=== PATIENT | male | born 1965 | race Caucasian/White ===

== ENCOUNTER 2018-04-06 20:51 | Emergency (ER) | payer SELFPAY ==
[2018-04-06 20:52] VITALS: BP 122/79; PULSE 117; RESP 15; TEMP 37.3; O2SAT 97; BMI 23.8
[2018-04-06] MEDS: Glucagon 1 MG/ML Syringe 2 MG IM (21:20)
[2018-04-06] MEDS: 0.9% Normal Saline 1,000 ML 150 ML IV (21:24)
[2018-04-06] MEDS: Propofol 200 MG/20 ML Vial 300 MG IV BOLUS (21:30)
--- NOTE | 2018-04-06 21:58 | PCM.CONS.GEN ---
Problem List (1) Esophageal obstruction due to food impaction Status: Acute Reason for Consult Date of Consultation: 04/06/18 History of Present Illness: The patient is a 52 year old M who reports that yesterday evening he was eating steak and he feels that this got stuck. He reports that he has been able to swallow his saliva but feels the food is still stuck in his midesophagus. He has had food impaction in the past that has required EGD for removal. Past Medical History Allergies No Known Allergies Allergy (Verified 04/06/18 20:51) Home Medications: Ambulatory Orders Medication Instructions Recorded Allopurinol 300 mg PO DAILY 02/27/17 Lisinopril/Hydrochlorothiazide 1 each PO DAILY 02/27/17 [Zestoretic 20-25 mg Tablet] Methadone HCl [(None)] 10 mg PO Q12H 02/27/17 Omeprazole [Prilosec] 40 mg PO DAILY 02/27/17 Acetaminophen with Codeine 1 - 2 tab PO Q4H PRN PRN 05/17/17 [Acetaminophen-Cod #3 Tablet] proMETHazine tablet [Phenergan] 25 mg PO Q6H PRN PRN 05/17/17 Surgical History: noncontributory Psychiatric History: No pertinent psych hx Smoking Status: Current every day smoker - *Family History Maternal History Items: Unknown Review of Systems Constitutional: Denies: Anorexia, Chills Cardiovascular: Denies: Chest Pain Respiratory: Denies: Cough, Shortness of Breath Gastrointestinal: Reports: - - Unable to swallow liquids. Feels like food is impacted in the midesophagus., - - Patient does have dysphagia Genitourinary: Denies: Dysuria Skin: Denies: Dryness, Jaundice Psychiatric: Denies: Anxiety Hematologic/ Lymphatic: Denies: Adenopathy - Physical Exam General: Alert, Oriented x3, Cooperative HEENT: Atraumatic Neck: Supple Lungs: Normal air movement Cardiovascular: Regular rate, Regular Rhythm Abdomen: Soft, Non Tender, Non-Distended Vital Signs Temp Pulse Resp BP Pulse Ox 99.1 F 117 H 15 122/79 H 97 04/06/18 20:52 04/06/18 20:52 04/06/18 20:52 04/06/18 20:52 04/06/18 20:52 Oxygen Delivery Method Room Air Weight: 147 lb 11.355 oz Body Mass Index (BMI) 23.8 Assessment/Plan All Active Problems Esophageal obstruction due to food impaction (Acute) 52-year-old male with food impaction of the esophagus 1. The patient has had to have an EGD in the past due to this. He reports he feels the same and he feels like the food is stuck in his esophagus. 2. I explained EGD with impaction removal to the patient. I explained the risks including but not limited to bleeding, infection, perforation of the esophagus, aspiration of fluid particulates. The patient wishes to proceed with EGD. Daniel Hitchcock MD Pager: [facility] [address] [place] [address], [address] [place] [address] Office:
--- NOTE | 2018-04-06 22:01 | CON.PCM_ITS ---
Problem List (1) Esophageal obstruction due to food impaction Status: Acute Reason for Consult Date of Consultation: 04/06/18 History of Present Illness: The patient is a 52 year old M who reports that yesterday evening he was eating steak and he feels that this got stuck. He reports that he has been able to swallow his saliva but feels the food is still stuck in his midesophagus. He has had food impaction in the past that has required EGD for removal. Past Medical History Allergies No Known Allergies Allergy (Verified 04/06/18 20:51) Home Medications: Ambulatory Orders Medication Instructions Recorded Allopurinol 300 mg PO DAILY 02/27/17 Lisinopril/Hydrochlorothiazide 1 each PO DAILY 02/27/17 [Zestoretic 20-25 mg Tablet] Methadone HCl [(None)] 10 mg PO Q12H 02/27/17 Omeprazole [Prilosec] 40 mg PO DAILY 02/27/17 Acetaminophen with Codeine 1 - 2 tab PO Q4H PRN PRN 05/17/17 [Acetaminophen-Cod #3 Tablet] proMETHazine tablet [Phenergan] 25 mg PO Q6H PRN PRN 05/17/17 Surgical History: noncontributory Psychiatric History: No pertinent psych hx Smoking Status: Current every day smoker - *Family History Maternal History Items: Unknown Review of Systems Constitutional: Denies: Anorexia, Chills Cardiovascular: Denies: Chest Pain Respiratory: Denies: Cough, Shortness of Breath Gastrointestinal: Reports: - - Unable to swallow liquids. Feels like food is impacted in the midesophagus., - - Patient does have dysphagia Genitourinary: Denies: Dysuria Skin: Denies: Dryness, Jaundice Psychiatric: Denies: Anxiety Hematologic/ Lymphatic: Denies: Adenopathy - Physical Exam General: Alert, Oriented x3, Cooperative HEENT: Atraumatic Neck: Supple Lungs: Normal air movement Cardiovascular: Regular rate, Regular Rhythm Abdomen: Soft, Non Tender, Non-Distended Vital Signs Temp Pulse Resp BP Pulse Ox 99.1 F 117 H 15 122/79 H 97 04/06/18 20:52 04/06/18 20:52 04/06/18 20:52 04/06/18 20:52 04/06/18 20:52 Oxygen Delivery Method Room Air Weight: 147 lb 11.355 oz Body Mass Index (BMI) 23.8 Assessment/Plan All Active Problems Esophageal obstruction due to food impaction (Acute) 52-year-old male with food impaction of the esophagus 1. The patient has had to have an EGD in the past due to this. He reports he feels the same and he feels like the food is stuck in his esophagus. 2. I explained EGD with impaction removal to the patient. I explained the risks including but not limited to bleeding, infection, perforation of the esophagus, aspiration of fluid particulates. The patient wishes to proceed with EGD. Daniel Hitchcock MD Pager: [facility] [address] [place] [address], [address] [place] [address] Office:
[2018-04-06 22:51] VITALS: BP 96/80; BP 97/54; PULSE 119; O2SAT 93
--- NOTE | 2018-04-06 22:52 | ED.VISSUMM ---
- ER Visit Summary Date of Service: 04/06/18 Chief Complaint: [Esophageal impaction] History of Present Illness: The patient is a 52 M [presents the emergency department with complaint of feeling like there is steak stuck in his throat. Patient states that he was eating steak last night. Patient feels like steak got stuck in his throat and was having a hard time swallowing even water. Patient has had similar episodes in the past. Patient had to have EGD 1 year ago to remove steak from his throat. Patient has a history of esophageal cancer and is undergoing chemotherapy and radiation.] Physical Examination: [HEENT-PERRLA, EOMI. Cranial nerves II through XII grossly intact. TMs clear. Mucous membranes moist. No adenopathy. Cardiovascular-regular rate and rhythm without murmur or ectopy Lungs-clear to auscultation, chest wall stable without crepitus or subcu emphysema Abdomen-normoactive bowel sounds, soft, nontender, no rebound or rigidity, no peritoneal signs. Extremities-intact ?4, normal range of motion, normal pulses, atraumatic] Test Results: [None indicated] Emergency Department Course and Treatment: [Patient case was discussed with Dr. Daniel Hitchcock to who was on-call for general surgery. Patient was seen in the emergency department and EGD was performed with removal of multiple large pieces of steak from the patient's esophagus. Sedation was performed with propofol by myself and a total of 380 mg of propofol was needed. Patient tolerated procedure well.] Treatment Plan: [Patient advised to chew his food thoroughly into small pieces.] Disposition: [Discharged to home in stable condition] Impression: [Esophageal impaction-resolved EGD performed by Dr. Hitchcock] This note was generated with [employer] dictation software. It may contain incorrect words, spelling, and punctuation that were not noted in review of the chart prior to signing ED Disposition - Plan for ED Patient: Chief Complaint: Foreign Body Referrals: Hill Zee MD [Primary Care Provider] -
[2018-04-06 22:56] VITALS: BP 92/62; BP 97/54; PULSE 112; O2SAT 92
--- NOTE | 2018-04-06 22:56 | ED.DEP ---
ED Disposition - Plan for ED Patient: Chief Complaint: Foreign Body Instructions: ED Foreign Body Esophageal Rslv Referrals: Hill Zee MD [Primary Care Provider] - Daniel Hitchcock MD [STAFF PHYSICIAN] - As Needed
[2018-04-06 23:01] VITALS: BP 103/48; BP 97/54; PULSE 108; O2SAT 93
--- NOTE | 2018-04-06 23:04 | PCM.OPRPT ---
Problem List (1) Esophageal obstruction due to food impaction Status: Acute Report of Operation Date of Procedure: 04/06/18 Pre-Operative Diagnosis: Impacted food bolus in the esophagus Post-Operative Diagnosis: Same Surgery/Procedure Performed:: EGD with removal of food impaction Description of Procedure: The patient was consented and placed in the left lateral decubitus position in the emergency room. IV propofol was administered by the ER physician. Next the well-lubricated scope was placed into the mouth and down the esophagus and the foreign body was reached. The patient had several large boluses of food lodged in his esophagus. Using the snare I was able to remove several of these large boluses intact. The largest piece was broken up with tripod forceps and then removed with the snare. The scope was then replaced into the esophagus and down into the stomach and into the duodenum. There appeared to be no further obstruction. Scope was slowly withdrawn and the esophagus was examined. The esophagus appeared intact with no tearing or perforation. The scope was slowly withdrawn and the rest of the esophagus was examined for any fluid boluses or particles. The vocal cords were examined there was nothing in the larynx. The scope was then withdrawn. The patient tolerated the procedure well.
[2018-04-06 23:06] VITALS: BP 104/61; BP 97/54; PULSE 105; O2SAT 94
[2018-04-06] MEDS: Propofol 200 MG/20 ML Vial 80 MG IV BOLUS (23:47)
[2018-04-06] MEDS: 0.9% Normal Saline 1,000 ML 500 ML IV (23:51)
--- NOTE | 2018-04-07 00:03 | ED.RN ---
380 MG OF DIPRIVAN ADMINISTERED BY DR Carolynn LOZANO DURING EGD. ONE 80MG AND ONE 100ML VIAL REMOVED FROM ACCUDOSE TO ACCOMMODATE ORDER.
[2018-04-07 00:33] VITALS: BP 109/70; PULSE 95; RESP 20; O2SAT 92
== END 2018-04-07 00:48 | disposition home or self-care (01) ==
PROVIDERS: Surgery; Emergency Provider Emergency Medicine; Family Provider Family Medicine; PCP Family Medicine
PROC: 0DJ08ZZ Inspection of Upper Intestinal Tract, Via Natural or Artificial Opening Endoscopic (ICD-10-PCS; CPT 43235; principal; 2018-04-06 20:30)
DX: T18.128A Food in esophagus causing other injury, initial encounter (principal); X58.XXXA Exposure to other specified factors, initial encounter; Y93.89 Activity, other specified; Y92.9 Unspecified place or not applicable; C15.9 Malignant neoplasm of esophagus, unspecified; I10 Essential (primary) hypertension; F17.200 Nicotine dependence, unspecified, uncomplicated; Z79.899 Other long term (current) drug therapy
CPT/HCPCS: 43247; 99283; J7030; A4216; J1610

== ENCOUNTER → 2018-05-14 13:28 | Outpatient (CLI) | payer SELFPAY ==
--- NOTE | 2018-05-14 | FLU_PTH ---
PATIENT: HAILEY SHHA LOC: [facility]#:[id number] AGE/SX: 59/M ROOM: RE05/14/[address]: Dr. Woody Mitchell DO : 1965 BED: DIS: SPEC #: [id number] RECD: 05/14/18 16:00 STATUS: MARIE REBrandon #: [id number] NINI: 05/14/18 00:[address]: Woody Mitchell DEPT: CYTOLOGY RECD BY: Demarcus Whitley ENTERED: 05/15/18 07:04 SP TYPE: Fluid OTHR DR: Dr. Hill Zee MD Tissues: THORACIC FLUID Procedures: Pap Stain (control) Special Stain Group II Surgery Specimen Level IV Cell Block Cytospin Fluid HEADER OPERATION: Ultrasound-guided thoracentesis PRE-OP DIAGNOSIS: Pleural effusion, esophagus cancer TISSUE SUBMITTED: Thoracentesis fluid for cytology DIAGNOSIS CYTOLOGY Thoracentesis fluid for cytology (cytospin and cell block): Negative for malignant cells. See cytology study and comment. SJ:eric 05/16/18 COMMENT Clinical correlation and appropriate follow up are necessary. CYTOLOGY STUDY Slides are reviewed. The specimen consists of numerous reactive and nonreactive mesothelial cells, macrophages and inflammatory cells. CYTOLOGY GROSS Received is 120 ml of clear yellow fluid labeled with the patient's name and and designated per the requisition as thoracentesis. Submitted for cytology preparation including cell block. / 05/15/18 TC:5 CPT: 33595, 41021
--- NOTE | 2018-05-14 13:41 | US_ITS ---
PROCEDURE: ULTRASOUND GUIDED LEFT THORACENTESIS. CLINICAL INDICATION: Pleural effusion. Shortness of breath. Dyspnea. Prior Thoracentesis history. Diagnostic and therapeutic thoracentesis. PHYSICIAN: Hill Waterman M.D. MEDICATIONS: 1% lidocaine administered subcutaneously for local anesthesia. ACCESS SITE: Left lower thorax, posterior approach. CATHETER: 5 [place]ian thoracentesis needle/catheter system. FLUID: Approximately 1330 mL of straw-colored pleural fluid removed with 130 cc fluid sent to lab for testing. COMPLICATIONS: None immediate. The risks, benefits and alternatives to the procedure and local anesthesia were explained to the patient. The specific risks of bleeding, infection, nerve damage, allergic reaction and pneumothorax requiring chest tube insertion were discussed and accepted. Written and witnessed informed consent was obtained. PROCEDURE: Ultrasonographic evaluation of the left lower pleural space was carried out. An adequate pocket was identified. The patient was placed in the sitting, upright position. The overlying skin was prepped and draped in sterile fashion. 1% lidocaine was administered subcutaneously for local anesthesia. Under ultrasound guidance, a 5 [place]ian thoracentesis needle/catheter system was advanced into the left posterior lower pleural fluid collection. The inner stylet was removed and there was spontaneous flow of pleural fluid. Approximately 1330 mL of fluid was aspirated with 130 cc fluid sent to lab for testing as requested. The catheter was removed. Hemostasis was achieved and a sterile dressing was applied. A specimen was collected and sent to the laboratory for analysis, as requested by the referring clinician. The patient tolerated the procedure well, without immediate complications. A chest x-ray was ordered and accomplished within an hour. US/Thoracentesis W US IMPRESSION: Successful ultrasound-guided left thoracentesis. Electronically Signed: Hill Waterman, at 19:43 EDT Tel , Service support ,
[2018-05-14 14:09] LABS: Prothrombin Time (Protime)PT. 13.6 SECONDS (11.7-14.9)
[2018-05-14 15:50] VITALS: BP 141/85; PULSE 96; RESP 18; O2SAT 96; BMI 23.3
[2018-05-14 16:15] VITALS: BP 150/85; PULSE 101; RESP 18; O2SAT 93
--- NOTE | 2018-05-14 16:22 | RAD_ITS ---
STUDY: X-RAY CHEST REASON FOR EXAM: Male, 52 years old. Left thoracentesis, check for pneumothorax. Cough after procedure. TECHNIQUE: 2 PA views with inspiration and exhalation were obtained status post left thoracentesis. COMPARISON: Chest 05/17/2017. FINDINGS: Visualized heart size appears mildly enlarged. Trachea near midline. No large gross pneumothorax suggested. Mediastinum appears grossly unchanged. Lungs appear fairly well ventilated with inspiration view. Left apical lateral faint nodular density overlies junction left posterior lateral third and left anterior second ribs which is approximate 1.3 cm diameter, neoplasm not excluded. Left hilar alveolar airspace opacity is seen, may represent pneumonia, atelectasis, pleural fluid or combination not seen with prior chest 05/17/2017 and persistent with both today's inspiration and exhalation views. Tiny rounded nodule may represent calcified granuloma left lung base laterally on exhalation view approximate 0.7 cm in diameter overlying left anterior fifth rib. Right rayshawn shows moderately enlarged pulmonary vessels with well-defined margins. No change severe aortic knob calcification. Stable appearing visualized thoracic spine. Stable appearing visualized ribs, clavicles and shoulders. Old healed right posterior lateral eighth rib fracture, stable. There is no demonstrated abnormality of the visualized soft tissue structures of the upper abdomen. No subdiaphragmatic free air seen grossly. RAD/Chest Insp/Exp 2 View IMPRESSION: Left hilar alveolar airspace opacity, may represent pneumonia, atelectasis, pleural fluid or combination. Clinical correlation recommended. Please see below recommendation of CT chest without IV contrast for further evaluation. Faint nodular density seen in the left lung apex laterally, cannot exclude pulmonary nodule/neoplasm. Recommend CT chest without IV contrast further evaluation. No pneumothorax identified suggested status post left thoracentesis. Electronically Signed: Hill Waterman, at 18:36 EDT Tel , Service support ,
[2018-05-14 17:05] LABS: Cytology, Body Fluid / CSF SEE PATHOLOGY REPORT
[2018-05-15 13:25] VITALS: BP 159/97; PULSE 98; RESP 16; O2SAT 91
== END ==
PROVIDERS: Family Provider Family Medicine; PCP Family Medicine; Visit Provider Internal Medicine Hematology & Oncology
DX: J90 Pleural effusion, not elsewhere classified (principal); C15.9 Malignant neoplasm of esophagus, unspecified
CPT/HCPCS: 32555; 36415; 71046; 85610; 88108; 88305; 88313

== ENCOUNTER → 2018-05-16 08:37 | Outpatient (CLI) | payer SELFPAY ==
[2018-05-16 08:51] VITALS: BP 135/78; PULSE 99; RESP 14; TEMP 36.6; O2SAT 92; BMI 24.1
== END ==
PROVIDERS: Family Provider Family Medicine; PCP Family Medicine; Visit Provider Internal Medicine Hematology & Oncology
DX: C15.9 Malignant neoplasm of esophagus, unspecified (principal)
CPT/HCPCS: 36569

== ENCOUNTER → 2018-06-04 15:12 | Outpatient (CLI) | payer SELFPAY | PROVIDERS: Family Provider Family Medicine; PCP Family Medicine; Visit Provider Surgery | DX: R06.02 Shortness of breath (principal) | CPT/HCPCS: 93306 ==

== ENCOUNTER 2018-06-04 16:21 | Day surgery (SDC) | payer SELFPAY ==
[2018-06-04 16:41] VITALS: BP 155/90; PULSE 95; RESP 16; TEMP 36.6; O2SAT 94; BMI 20.9
[2018-06-04] MEDS: Cefazolin 2 GM in 0.9% Normal Saline 100 ML IV (17:10)
[2018-06-04 18:37] VITALS: BP 116/91; BP 155/90; PULSE 102; RESP 16; TEMP 36.2; O2SAT 94
--- NOTE | 2018-06-04 18:40 | PCM.DC.POR ---
Discharge Diet: No Restrictions - Pain medication may cause nausea. You should typically eat light foods as you take your pain medication. Discharge Activity: Return to Normal Activity, May Shower - with the bandage in place 1-2 days after surgery. DO NOT SHOWER WHEN YOUR PORT IS ACCESSED. Additional Activity Instructions:: May not drive, work with heavy equipment, or sign legal documents for [address] if you are no longer taking narcotic pain medications. You may drive when you are no longer taking pain medications. Additional Dressing/Incision Instructions:: Leave the bandage on for 2-3 days. When you remove the bandage, leave the steri-strips intact until they fall off. Allergies/Adverse Reactions: Allergies No Known Allergies Allergy (Verified 06/04/18 09:34) Medications to take at Discharge Lisinopril/Hydrochlorothiazide [Zestoretic 20-25 mg Tablet] 1 each PO DAILY 02/27/17 Methadone HCl 10 mg PO Q12H 02/27/17 Omeprazole [Prilosec] 40 mg PO DAILY 02/27/17 Acetaminophen with Codeine [Acetaminophen-Cod #3 Tablet] 1 - 2 tab PO Q4H PRN PRN 05/17/17 proMETHazine tablet [Phenergan tablet] 25 mg PO Q6H PRN PRN 05/17/17 Primary Care Physician: Hill Zee MD [Primary Care Provider] - Test Results: Test results from this visit will be discussed in further detail at your follow-up appointment, if applicable. Please Follow Up With: Fidel White MD - [phone] When: Please plan to follow up in 3 days in the office.
--- NOTE | 2018-06-04 18:41 | PCM.OPRPT ---
Report of Operation Date of Procedure: 06/04/18 Pre-Operative Diagnosis: metastatic esophageal cancer Post-Operative Diagnosis: successful left subclavian Port-A-Cath placement, left tunneled Pleurx catheter placement with 1400 cc pleural fluid evacuated Surgery/Procedure Performed:: left subclavian portacath with fluoroscopy - powerport [id number] Lot [id number] exp = 07/08/2019, left tunnelled plueral - pleurex catheter with ultrasound guidance - [id number] Lot [id number] ext 10/08/2019 Description of Surgical Findings:: left subclavian portacath with fluoroscopy - powerport [id number] Lot [id number] exp = 07/08/2019, left tunnelled plueral - pleurex catheter with ultrasound guidance - [id number] Lot [id number] ext 10/08/2019 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 The left subclavian site was marked in the holding area and the patient concurred this was the planned operative site. Sign was performed verifying patient, site, position, skip antibiotic prophylaxis-2 g of Ancef and DVT prophylaxis with SCDs. Ultrasound was used to evaluate the left thoracic space and pleural fluid was noted to be at the planned site which was marked on the skin Following IV sedation, the left neck and chest were prepped and draped in the usual fashion. Timeout was performed verifying patient, site, position. Local anesthetic was injected and a Seldinger needle was used to access the left subclavian vein without difficulty. Under fluoroscopic control, a guidewire was inserted and advanced the SVC RA region. Local anesthetic was injected and incision made and pocket created for the port site. Next the catheter was tunneled from the wire site incision to the port site incision. Under fluoroscopic control introducer sheath and dilator were inserted over the wire. The wire and dilator removed. The catheter was fed through the introducer suture sheath and adjusted to the SVC RA region. There was good return of venous blood and easy inflow of saline through the system. Fluoroscopy demonstrated good positioning of the catheter. Next the catheter was cut to length affixed to the port with the locking ring and secured in the pocket with 2-2-0 Prolene sutures. Subcutaneous fat closed with interrupted 3-0 Vicryl suture. Skin closed with 4-0 Biosyn interrupted and running subcuticular sutures. Fluoroscopy demonstrated good position of the system. The port was accessed. There was good return of venous blood. Inflow of saline was easy. The port was then flushed with 2-3 cc of 100 unit per heparin solution. A dressing was applied. left chest and upper lateral abdomen were prepped and draped in the usual fashion. Local anesthetic was injected and a Seldinger needle was used to access the left/right pleural space without difficulty. a guidewire was inserted and advanced into the pleural space. Local anesthetic was injected and incision made for the catheter exit site. Next the catheter was tunneled from the skin exit site to the wire. Dilators were placed over the wire until the largest dilator with introducer sheath were placed. The wire and dilator removed. The catheter was fed through the introducer suture sheath and adjusted to the edge of the pleural surface with the fenestrations . There was good return of pleural fluid. The Pleurx catheter was affixed to an adapter and attached to a Pleur-evac at 20 cm suction. A total of approximately 1400 cc of fluid was drained. The catheter was secured with a 3-0 silk suture at the skin exit site at the thoracic site. Skin was closed with 4-0 Biosyn interrupted subcuticular sutures. Dermabond was applied to the thoracic site. A dressing was applied. The joints were taped and a large dressing placed over the drain exit site. The patient was brought to recovery room in stable condition with plans for a postprocedure chest x-ray.
[2018-06-04 18:45] VITALS: BP 141/92; BP 155/90; PULSE 94; RESP 16; O2SAT 94
[2018-06-04 18:50] VITALS: BP 142/85; BP 155/90; PULSE 102; RESP 16; O2SAT 96
[2018-06-04 19:00] VITALS: BP 144/87; BP 155/90; PULSE 100; RESP 16; TEMP 36.3; O2SAT 95
[2018-06-04 19:42] VITALS: BP 155/90
== END 2018-06-04 19:44 | disposition home or self-care (01) ==
LOC: SDC 16:21 → AC 16:22
PROVIDERS: Family Provider Family Medicine; PCP Family Medicine; Visit Provider Surgery
PROC: (CPT 32550; principal; 2018-06-04 07:15)
DX: Z45.2 Encounter for adjustment and management of vascular access device (principal); C15.9 Malignant neoplasm of esophagus, unspecified; C78.7 Secondary malignant neoplasm of liver and intrahepatic bile duct; C78.02 Secondary malignant neoplasm of left lung; C78.01 Secondary malignant neoplasm of right lung; J90 Pleural effusion, not elsewhere classified; F41.9 Anxiety disorder, unspecified; I10 Essential (primary) hypertension; I31.3 Pericardial effusion (noninflammatory); K21.9 Gastro-esophageal reflux disease without esophagitis; F17.210 Nicotine dependence, cigarettes, uncomplicated; Z79.899 Other long term (current) drug therapy
CPT/HCPCS: 32550; 36561; 71045; 77001; J7120; A4216; C1729; C1788